=== PATIENT | female | born 1970 | race Caucasian/White ===

== ENCOUNTER 2016-05-25 21:31 | Emergency (ER) | payer OTHER ==
[~2016-05-25] VITALS: Ht 175.3 cm; Wt 89.8 kg
[2016-05-25] MEDS ORDERED: ESCITALOPRAM OX20 MG PO (22:10)
[2016-05-25] MEDS ORDERED: ZOLPIDEM TARTRA10 M1 PO (22:11)
[2016-05-25] MEDS ORDERED: PROGESTERONE100 M2 PO (22:11)
[2016-05-25] MEDS ORDERED: CHANTIX1 MG PO (22:11)
[2016-05-25] MEDS ORDERED: PRAVASTATIN SOD20 M2 PO (22:11)
--- NOTE | 2016-05-25 22:11 | ED UPPER/LOWER EXTREMITY COMPL ---
History of Present Illness General Chief Complaint: Lower Extremity Problems Stated Complaint: KNEE PAIN Source: patient, old records Exam Limitations: no limitations Vital Signs & Intake/Output Vital Signs & Intake/Output Vital Signs Date Time Temp Pulse Resp B/P Pulse O2 O2 Flow FiO2 Ox Delivery Rate 05/25 2140 99.0 84 18 125/80 99 Room Air Allergies Coded Allergies: NO KNOWN ALLERGIES (08/13/13) Reconcile Medications Cholecalciferol (Vitamin D3) (Vitamin D) 2,000 UNIT TABLET 1 TAB PO DAILY SUPPLEMENT (Reported) Escitalopram Oxalate 20 MG TABLET 1 TAB PO DAILY MENTAL HEALTH (Reported) Evening [place] Oil (Evening [place]) (Unknown Strength) CAPSULE (Unknown Dose) PO DAILY MENTAL HEALTH (Reported) Meloxicam 15 MG TABLET 1 TAB PO DAILY PAIN/INFLAMMATION (Reported) Oxycodone HCl/Acetaminophen (Percocet 5-325 MG Tablet) 5 MG-325 MG TABLET 1-2 TAB PO Q6P PRN PAIN Pravastatin Sodium 20 MG TABLET 1 TAB PO DAILY CHOLESTEROL (Reported) Progesterone,Micronized (Progesterone) 100 MG CAPSULE 1 CAP PO QHS HRT ( Reported) Varenicline Tartrate (Chantix) 1 MG TABLET 1 TAB PO BID SMOKING CESSATION ( Reported) Zolpidem Tartrate 10 MG TABLET 1 TAB PO QPM SLEEP (Reported) Triage Note: PT TO TRIAGE WITH C/O L KNEE PAIN 3/10 INCREASING WITH MOVEMENT UP TO 10/10 SINCE LAST NIGHT S/P L KNEE POPPED WHILE WALKING. PT REFUSED PAIN MEDS IN TRIAGE. Triage Nurses Notes Reviewed? yes HPI: Patient was walking along and felt like her left kneecap slipped out of place. Patient then straightened her leg and the kneecap back into place but since then she has been having severe 10 out 10 pain to her knee. The pain increases when she straightened her leg. There is no radiation of the pain. There is swelling to the knee. Patient denies any other injury. The pain is aching and throbbing in nature. Past History Travel History Traveled to [place] past 21 day No Medical History Any Pertinent Medical History? see below for history Cardiovascular: hyperlipidemia Psychiatric: depression Surgical History Surgical History: non-contributory Psychosocial History What is your primary language Irish Tobacco Use: Current Daily Use Daily Tobacco Use Amount/Type: => 5 Cigarettes daily ETOH Use: occasional use Illicit Drug Use: denies illicit drug use Family History Hx Contributory? No Review of Systems Review of Systems Constitutional: Reports: no symptoms. Respiratory: Reports: no symptoms. Cardiovascular: Reports: no symptoms. Gastrointestinal/Abdominal: Reports: no symptoms. Musculoskeletal: Reports: see HPI, joint pain, joint swelling. Neurological/Psychological: Reports: no symptoms. Immunological: Reports: no symptoms. Physical Exam Physical Exam General Appearance: well developed/nourished, alert, awake, mild distress Eyes: Bilateral: PERRL, EOMI. Neck: normal inspection, supple, full range of motion Cardiovascular/Respiratory: normal breath sounds, normal peripheral pulses, regular rate/rhythm, no respiratory distress Knee Left: normal range of motion, swelling, tenderness, soft tissue tenderness Knee Ligaments Left: STABLE Foot Left: normal inspection, normal range of motion Neurologic/Tendon: normal sensation, normal motor functions, normal tendon functions Lymphatic: no anterior cervical adrien Progress Differential Diagnosis: contusion, dislocation, fracture, sprain Plan of Care: Orders Procedure Date/time Status Durable Medical Equipment 05/25 2306 Active Diagnostic Imaging: Viewed by Me: Radiology Read. Discussed w/RAD: Radiology Read. Radiology Impression: PATIENT: IQRA MALIK PRESENT AGE: 45 PATIENT ACCOUNT NO: [id number] : 66 LOCATION: [facility] ORDERING PHYSICIAN: DONNA FLOWERS MD SERVICE DATE: 05/25/16 EXAM TYPE: RAD - XRY-KNEE COMPLETE LEFT EXAMINATION: LEFT KNEE 3 VIEWS CLINICAL INFORMATION: Left knee pain after fall. COMPARISON: None. TECHNIQUE: AP, lateral , oblique views of the left knee were obtained. FINDINGS: There are no fractures or dislocations. There is a small knee joint effusion. There is no significant soft tissue swelling. There is mild osteophyte formation about the medial compartment. There is mild tibial spine spurring. There is mild narrowing to the patellofemoral compartment. IMPRESSION: Small knee joint effusion. Mild degenerative change as stated above. DICTATED BY: STANISLAV MORGAN MD DATE/TIME DICTATED:05/25/162241 SCIENTIFIC EDITOR:MARGOT DATE/TIME TRANSCRIBED:2241 CONFIDENTIAL, DO NOT COPY WITHOUT APPROPRIATE AUTHORIZATION. < Electronically signed in Other Vendor System> SIGNED BY: STANISLAV MORGAN MD 05/25/162245 Departure Departure Disposition: HOME OR SELF CARE Condition: Stable Clinical Impression Primary Impression: Left knee sprain Referrals: ASHLEE DAVILA,JENNIE DRAKE MD,STEPHANIA Barraza (PCP/Family) Additional Instructions: RETURN IF SYMPTOMS WORSEN OR FOR ANY CONCERNS Departure Forms: Customer Survey General Discharge Information Prescriptions: Current Visit Scripts Oxycodone HCl/Acetaminophen (Percocet 5-325 MG Tablet) 1-2 TAB PO Q6P PRN PAIN #20 TAB Procedures Splinting Location: LEFT KNEE Manual Alignment Performed: No Pre-Made Type: knee imobilizer Splint: KNEE Splint Applied By: splint applied by me Pre-Proc Neuro Vasc Exam: normal Post-Proc Neuro Vasc Exam: normal
[2016-05-25] MEDS ORDERED: MELOXICAM15 M1 PO (22:12)
[2016-05-25] MEDS ORDERED: VITAMIN D2000 UNI1 PO (22:12)
[2016-05-25] MEDS ORDERED: EVENING PRIMRO PO (22:12)
--- NOTE | 2016-05-25 22:46 | RADIOLOGY REPORT ---
EXAMINATION: LEFT KNEE 3 VIEWS CLINICAL INFORMATION: Left knee pain after fall. COMPARISON: None. TECHNIQUE: AP, lateral, oblique views of the left knee were obtained. FINDINGS: There are no fractures or dislocations. There is a small knee joint effusion. There is no significant soft tissue swelling. There is mild osteophyte formation about the medial compartment. There is mild tibial spine spurring. There is mild narrowing to the patellofemoral compartment. IMPRESSION: Small knee joint effusion. Mild degenerative change as stated above.
[2016-05-25] MEDS ORDERED: PERCOCET 5-3251 EACH PO (23:06)
[2016-05-25 23:20] VITALS: BP 122/79
== END 2016-05-25 23:20 ==
LOC: ERH 21:31
DX: S83.92XA Sprain of unspecified site of left knee, initial encounter (principal); X58.XXXA Exposure to other specified factors, initial encounter; Y92.9 Unspecified place or not applicable; Y93.K1 Activity, walking an animal
CPT/HCPCS: 73562-LT